=== PATIENT | male | born 1995 | race Caucasian/White ===

== ENCOUNTER 2024-02-25 12:19 | Emergency (ER) | payer MEDICAID, SELFPAY ==
[2024-02-25] VITALS (7 sets, daily range): BP systolic 134–149; BP diastolic 82–101; PULSE 57–78; RESP 17–24; TEMP 36.8; O2SAT 97–100
--- NOTE | ~2024-02-25 | XR_ITS ---
EXAMINATION: XR chest 2V DATE: 02/25/2024 12:41 INDICATION: Chest pain and shortness of breath TECHNIQUE: PA and lateral views of the chest were obtained. COMPARISON: None FINDINGS: The lungs are clear with no focal airspace opacities, pulmonary edema, pleural effusion or pneumothor ax. The cardiomediastinal silhouette is normal. Visualized bones and soft tissues are unremarkable. IMPRESSION: 1. Normal chest radiograph. Reviewed, dictated and finalized at location A. IMPRESSION: 1. Normal chest radiograph.
--- NOTE | 2024-02-25 12:24 | ECG_ITS ---
SEE SCANNED COPY FOR CONFIRMED REPORT MTDD
--- NOTE | 2024-02-25 12:40 | ED.CHESTPAIN ---
HPI - Chest Pain General Chief Complaint: Chest Pain Stated Complaint: chest pressure Time Seen by Provider: 02/25/24 12:27 History of Present Illness HPI narrative: 28-year-old male presents to the emergency room for evaluation of midsternal chest pain that has been present for 5 days. Patient states the pain is worse when he is walking around, it is relieved when he is at rest. Denies any radiating pain. Denies shortness of breath or difficulty breathing. Patient denies any use of recreational drugs. 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 Denies shortness of breath or difficulty breathing. Denies fevers. Denies recent URI symptoms. Denies palpitations or lower extremity edema. Related Data Allergies Allergy/AdvReac Type Severity Reaction Status Date / Time No Known Allergies Allergy Unverified 02/17/17 11:39 Review of Systems Review of Systems: ROS unremarkable except for stated in HPI Exam Narrative: GENERAL: Well-appearing, well-nourished, no physical limitations, and in no acute distress. HEAD: Normocephalic, atraumatic. EYES: Conjunctivae normal, PERRLA and EOMI. CHEST: Clear to auscultation. No respiratory distress. No wheezes rales or rhonchi. No tenderness. HEART: Regular rate and rhythm. No murmur heard. Normal peripheral pulses. ABDOMEN: Soft, nontender, nondistended, normal active bowel sounds. BACK: No CVA tenderness EXTREMITIES: Normal range of motion. No edema. No clubbing or cyanosis SKIN: Warm, dry, no rash. No noted wounds NEURO: No focal deficits. Alert and oriented x3. MAEW. CN's II-XI intact bilaterally, normal gait PSYCH: Cooperative. Normal mood and affect. Course Vital Signs Vital signs: Vital Signs Pulse Rate 73 02/25/24 12:25 Respiratory Rate 17 02/25/24 12:25 Blood Pressure 134/91 H 02/25/24 12:25 Pulse Oximetry 100 02/25/24 12:25 Pulse Rate 66 02/25/24 13:01 Respiratory Rate 20 02/25/24 13:01 Blood Pressure 145/85 H 02/25/24 13:01 Pulse Oximetry 100 02/25/24 13:01 Oxygen Delivery Room Air 02/25/24 12:26 MDM - Chest Pain Lab Data 02/25/24 12:36 02/25/24 12:36 Labs: Lab Results 02/25/24 Range/Units 12:36 WBC 12.2 H (4.5-10.0) K/mm3 RBC 5.27 (4.6-6.20) M/mm3 Hgb 15.2 (14.0-18.0) g/dL Hct 45.6 (42.0-52.0) % MCV 86.5 (80-100) fl MCH 28.8 (26-34) pg MCHC 33.3 (32-36) g/dl RDW 12.6 (11.5-14.5) % Plt Count 323 (150-375) k/mm3 MPV 10.4 (7.4-10.4) fl Immature Gran % (Auto) 0.3 (0-0.5) % Neut % (Auto) 60.4 (45.5-73.1) % Lymph % (Auto) 30.1 (18.3-44.2) % Atlantic % (Auto) 7.4 (2.6-8.5) % Eos % (Auto) 1.1 (0-4.4) % Baso % (Auto) 0.7 (0.2-1.2) % Lymph # (Auto) 3.68 H (0.9-3.2) K/mm3 Atlantic # (Auto) 0.9 H (0.1-0.6) K/mm3 Eos # (Auto) 0.1 (0-0.3) K/mm3 Baso # (Auto) 0.1 (0.0-0.1) K/mm3 Abs Immat Gran (auto) 0.04 H (0.00-0.031) K/mm3 Absolute Neuts (auto) 7.4 H (1.3-6.7) K/mm3 Absolute Nucleated RBC 0.000 (0.0-0.012) K/mm3 Nucleated RBC % 0.0 (0.0-0.2) % PT 13.6 (11.1-14.7) Seconds INR 1.0 APTT 27.4 (22.3-36.8) Seconds Sodium 137 (137-145) mmol/L Potassium 3.8 (3.4-5.0) mmol/L Chloride 100 (98-107) mmol/L Carbon Dioxide 24 (22-30) mmol/L Anion Gap 13 H (4-12) mmol/L BUN 12 (9-20) mg/dL Creatinine 0.80 (0.7-1.3) mg/dL Estim Creat Clear Calc 126 ml/min Estimated GFR > 60 (59 - ) Glucose 104 (65-110) mg/dL Calcium 9.6 (8.4-10.2) mg/dL Total Bilirubin 1.2 (0.2-1.3) mg/dL AST 24 (17-59) U/L ALT 20 (6-50) U/L Alkaline Phosphatase 67 (38-126) U/L Troponin I < 0.012 (0.000-0.034) ng/mL Total Protein 9.0 H (6.3-8.2) g/dL Albumin 5.3 H (3.5-5.1) g/dL Lipase 59 (23-300) U/L Discharge Plan Discharge Clinical Impression: Atypical chest pain Patient Disposition: Home, Self-Care Condition: Stable Instructions: Antibiotic Form, Chest Pain (E
[2024-02-25 12:58] LABS: Basophils Absolute Auto 0.1 K/mm3 (0.0-0.1); Basophils Percent Auto 0.7 % (0.2-1.2); Eosinophils Absolute Auto 0.1 K/mm3 (0-0.3); Eosinophils Percent Auto 1.1 % (0-4.4); Hematocrit 45.6 % (42.0-52.0); Hemoglobin 15.2 g/dL (14.0-18.0); Immature Granulocyte Absolute 0.04 K/mm3 (0.00-0.031); Immature Granulocyte Percent A 0.3 % (0-0.5); Lymphocytes Absolute Auto 3.68 K/mm3 (0.9-3.2); Lymphocytes Percent Auto 30.1 % (18.3-44.2); Mean Corpuscular HGB Conc 33.3 g/dl (32-36); Mean Corpuscular Hemoglobin 28.8 pg (26-34); Mean Corpuscular Volume 86.5 fl (80-100); Mean Platelet Volume 10.4 fl (7.4-10.4); Monocytes Absolute Auto 0.9 K/mm3 (0.1-0.6); Monocytes Percent Auto 7.4 % (2.6-8.5); Neutrophils Absolute Auto 7.4 K/mm3 (1.3-6.7); Neutrophils Percent Auto 60.4 % (45.5-73.1); Platelet Count Result 323 k/mm3 (150-375); Red Blood Count 5.27 M/mm3 (4.6-6.20); Red Cell Distribution Width 12.6 % (11.5-14.5); White Blood Count 12.2 K/mm3 (4.5-10.0)
[2024-02-25] MEDS: KETOROLAC 30 MG/ML VIAL (*BKC) IV PUSH (13:02)
[2024-02-25 13:11] LABS: Alanine Aminotransferase 20 U/L (6-50); Albumin Level 5.3 g/dL (3.5-5.1); Alkaline Phosphatase 67 U/L (38-126); Anion Gap 13 mmol/L (4-12); Aspartate Amino Transferase 24 U/L (17-59); Bilirubin,Total 1.2 mg/dL (0.2-1.3); Blood Urea Nitrogen 12 mg/dL (9-20); Calcium 9.6 mg/dL (8.4-10.2); Carbon Dioxide 24 mmol/L (22-30); Chloride 100 mmol/L (98-107); Estimated CRCL calculation 126 ml/min; Estimated Glomerular Filt Rate > 60; Glucose 104 mg/dL (65-110); Lipase 59 U/L (23-300); Potassium 3.8 mmol/L (3.4-5.0); Sodium 137 mmol/L (137-145)
[2024-02-25 13:14] LABS: Prothrombin Time 13.6 Seconds (11.1-14.7)
[2024-02-25 13:16] LABS: Partial Thromboplastin Time 27.4 Seconds (22.3-36.8)
[2024-02-25 13:23] LABS: Troponin I < 0.012 ng/mL (0.000-0.034)
== END 2024-02-25 14:00 | disposition home or self-care (01) ==
PROVIDERS: Preventive Medicine Aerospace Medicine; Emergency Provider Nurse Practitioner Family
DX: R07.89 Other chest pain (principal)
CPT/HCPCS: 36415; 71046; 80053; 83690; 84484; 85025; 85610; 85730; 93005; 96374; 99284; J1885

== ENCOUNTER 2025-05-02 17:35 | Emergency (ER) | payer OTHER, SELFPAY ==
--- OUTSIDE RECORDS SUMMARY | 2025-05-02 17:37 | XMS_ITS | Clinical Summary ---
Author Organization [facility] Address [address] [place] [address] Care Team Providers Care Coil Placer Name Role Phone Chago Faust MD Primary Care Provider [phone] Allergies Active Allergy Reactions Criticality Noted Date Comments Sulfa Unknown 03/08/2025 Medications No known medications Active Problems Problem Noted Date Diagnosed Date Migraine without aura 03/08/2025 Overview (03/08/2025): Provided family with alot of reassurrance given normal PE, including neuro exam. Features indicative of probable migraine headaches, uncomplicated. Provided family with handouts from [employer], as well as a questionnaire for migraines. Jeanine encouraged to get plenty of rest/sleep, exercise and fluids daily as well as to keep a log of his headaches and any possible precipitating events. At first sign of headache, he is to notify mother or teacher and take motrin and a caffeinated beverage. Will follow up in 2 months or sooner if not better. Assessment & Plan (03/08/2025 4:42 PM CDT): Stable, well controlled; patient reports 1 episode every 4 months; good relief with mfvo-tgm-hynkhnb treatments with Tylenol and ibuprofen Continue ujie-ewv-tzigwvj treatments p.r.n. for symptoms Varicose veins of left lower extremity 7 Resolved Problems Problem Noted Date Diagnosed Date Resolved Date Depression 04/10/2016 03/08/2025 Encounters Date Type Department Care Team Description 03/27/2025 1:41 PM CDT - 03/27/2025 11:59 PM CDT Hospital Encounter [facility] [address] [place] [address] Lymphadenopathy of head and neck Discharge Disposition: Discharge to home or self care 03/09/2025 Results Follow-Up [facility] [address] [phone] Chago Faust MD CBC with auto differential, Comprehensive metabolic panel, Hepatitis B Surface Antigen Blood, Additional followed-up results: 7 03/08/2025 3:00 PM CDT Lab [facility] [address] [place] [phone] Encounter to establish care with new doctor; Need for hepatitis B screening test; Encounter for hepatitis C screening test for low risk patient 03/08/2025 2:30 PM CDT Office Visit [facility] [address] [phone] Chago Faust MD Lymphadenopathy of head and neck (Primary Dx); Need for hepatitis B screening test; Encounter for hepatitis C screening test for low risk patient; Encounter to establish care with new doctor; Migraine without aura and without status migrainosus, not intractable from Last 3 Months Immunizations Immunization Administration Dates Next Due Adenovirus 12/03/2017 DTaP 07/20/2001, 9,03/29/1998,11/21,1997 Hep A, Ped Unspecified 06/12/2010,05/24/2007 Hep B, Adolescent or Pediatric 03/29/1998,1996,1997 IPV 12/03/2017, 1,1997,09/19 Influenza, Quadrivalent, Stephany l Culture-based MDCK, Antibiotic Free, Intramuscular 12/03/2017 MMR 12/08/2017,07/20/2001,05/30/1999 Meningococcal MCV4P (Menactra) 12/03/2017,2013 OPV 05/30/1999 Tdap 12/03/2017,06/12/2010 Varicella 06/23/2014,09/17/1998 Surgical History Surgery Date Site/Laterality Comments APPENDECTOMY 10/12/2010 - 10/11/2011 N/A Family History Medical History Relation Name Comments Diabetes Mother's Brother Relation Name Status Comments Mother's Brother Social History Tobacco Use Types Packs/Day Years Used Date Smoking Tobacco: Never Smokeless Tobacco: Never Tobacco Cessation:Counseling Given: Not Answered AUDIT-C Answer Date Recorded Q1: How often do you have a drink containing alcohol? Never 03/08/2025 Q2: How many drinks containi ng alcohol do you have on a typical day when you are drinking? Patient does not drink Q3: How often do you have si x or more drinks on one occasion? Never 03/08/2025 PHQ-2 Answer Date Recorded PHQ-2 Total Score (If total score is 3 or more points, staff should administer the PHQ-9) 0 03/08/2025 Sex and Gender Information Value Date Recorded Sex Assigned at Not on file Legal Sex Male 7:09 AM [employer] Gender Identity Not on file Sexual Orientation Not on file Obstetrics History Last Filed Vital Signs Vital Sign Reading Time Taken Comments Blood Pressure 114/70 03/08/2025 2:15 PM CDT Pulse 54 03/08/2025 2:15 PM CDT Temperature 36.5 C (97.7 F) 03/08/2025 2:15 PM CDT Respiratory Rate 18 03/08/2025 2:15 PM CDT Oxygen Saturation 98% 03/08/2025 2:15 PM CDT Inhaled Oxygen Concentration - - Weight 112 kg (247 lb) 03/08/2025 2:15 PM CDT Height 180.3 cm (5' 11) 03/08/2025 2:15 PM CDT Body Mass Index 34.45 03/08/2025 2:15 PM CDT Plan of Treatment Health Maintenance Due Date Last Done Comments Regular Well Visit/Exam 18-64 2015 Covid-19 Vaccine ( season) 2024 01/29/2021, 01/07/2021 Influenza Vaccine (#1) 2025 12/03/2017 Depression Screening 03/08/2026 03/08/2025 DTaP/Tdap/Td Vaccine (8 - Td or Tdap) 12/03/2027 12/03/2017, 06/12/2010, 07/20/2001, Additional history exists Varicella Vaccines Completed 06/23/2014, 09/17/1998 Hepatitis B Screening Completed 03/08/2025 , 03/29/1998, 1997, Additional history exists Hepatitis C Screening Completed 03/08/2025 HPV Vaccines Aged Out No longer eligi ble based on patient's age to complete this topic Pneumococcal vaccine <65 Aged Out No longer eligible based on patient's age to complete this topic Procedures Procedure Name Priority Date/Time Associated Diagnosis Comments US SOFT TISSUE HEAD NECK Schedule Routine, Read Routine (OP Routine) 03/27/2025 2:04 PM CDT Lymphadenopathy of head and neck EGFR Routine 03/08/2025 3:08 PM CDT Encounter to establish care with new doctor DIFFERENTIAL AUTO Routine 03/08/2025 3:0 8 PM CDT Encounter to establish care with new doctor LIPID PANEL Routine 03/08/2025 3:08 PM CDT Encounter to establish care with new doctor COMPREHENSIVE METABOLIC PANEL Routine 03/08/2025 3:08 PM CDT Encounter to establish care with new doctor CBC WITH AUTO DIFFERENTIAL Routine 03/08/2025 3:08 PM CDT Encounter to establish care with new doctor HEPATITIS C ANTIBODY Routine 03/08/2025 3:08 PM CDT Encounter for hepatitis C screening test for low risk patient HEPATITIS B SURFACE ANTIBODY (IMMUNE STATUS) Routine 03/08/2025 3:08 PM CDT Need for hepatitis B screening test HEPATITIS B CORE ANTIBODY, TOTAL Routine 03/08/2025 3:08 PM CDT Need for hepatitis B screening test HEPATITIS B SURFACE ANTIGEN Routine 03/08/2025 3:08 PM CDT Need for hepatitis B screening test from Last 3 Months Results * US Soft Tissue Neck (03/27/2025 2:04 PM CDT) Anatomical Region Laterality Modality Head and Neck N/A Ultrasound 04/12/2025 2:23 AM CDT Narrative 04/12/2025 2:28 AM CDT EXAM DESCRIPTION: US SOFT TISSUE HEAD NECK REASON FOR STUDY: enlarged lymph nodes; bilaterally Patient complains of swelling to inferior and lateral neck bilaterally for approximately 2 years. TECHNIQUE: A Dynamic assessment of the bilateral neck was performed by the financial representative with selected grayscale and color Doppler images acquired and recorded in PACS. COMPARISON: None. FINDINGS: SKIN AND SUBCUTANEOUS TISSUES: No masses. No fluid collections. No edema. No foreign bodies. DEEP SOFT TISSUES/MUSCLES: No masses. No fluid collections. No edema. OTHER: No other significant finding. IMPRESSION: No soft tissue mass, fluid collection, lymphadenopathy or foreign body. THIS IS AN ELECTRONICALLY VERIFIED FINAL REPORT 04/12/2025 2:28 AM - Electronically signed by Mariana Wilkinson M.D. SN: SN Report ID: [id number] Reading Location: [id number] Procedure Note Mariana Wilkinson MD - 04/12/2025 EXAM DESCRIPTION: US SOFT TISSUE HEAD NECK REASON FOR STUDY: enlarged lymph nodes; bilaterally Patient complains of swelling to inferior and lateral neck bilaterally for approximately 2 years. TECHNIQUE: A Dynamic assessment of the bilateral neck was performed bythe financial representative with selected grayscale and color Doppler images acquired and recorded in PACS. COMPARISON: None. FINDINGS: SKIN AND SUBCUTANEOUS TISSUES: No masses. No fluid collections. Noedema. No foreign bodies. DEEP SOFT TISSUES/MUSCLES: No masses. No fluid collections. No edema. OTHER: No other significant finding. IMPRESSION: No soft tissue mass, fluid collection, lymphadenopathy or foreign body. THIS IS AN ELECTRONICALLY VERIFIED FINAL REPORT 04/12/2025 2:28 AM - Electronically signed by Mariana Wilkinson M.D. SN: SN Report ID: [id number] Reading Location: [id number] us Chago Faust MD [facility] US PROCEDURES Final R esult * eGFR (03/08/2025 3:08 PM CDT) eGFR >90 >=60 mL/min/1. 73 m2 Comment: Interpretive Data Reference Interval Normal >/= 90 mL/min/1.73m2 Mildly decreased* 60 - 89 mL/min/1.73m2 Mildly to moderately decreased 45 - 59 mL/min/1.73m2 Moderately to severely decreased 30 - 44 mL/min/1.73m2 Severely decreased 15 - 29 mL/min/1.73m2 Kidney Failure < 15 mL/min/1.73m2 *Relative to young adult level Estimated glomerular filtration rate is determined by the 2020 CKD-EPI equation recommended by the National Kidney Foundation (A Unifying Approach to GFR Estimation: Recommendations of the NKF-ASK Task Force on Reassessing the Inclusion of Race in Diagnosing Kidney Disease, JASN 2020). The CKD-EPI equation should not be used for patients with unstable renal function and has not been validated in children and those over 70. Current interpretive data was last reviewed 2021. Testing performed by: [address] [id number] Blood 03/08/2025 3:08 PM CDT 03/08/2025 7:23 PM CDT us Chago Faust MD LAB BLOOD ORDERABLES Mora kingsley Result [facility]ST[facility]I [facility] ([place]) 1 [facility] Department [place] [address] * Differential, auto (03/08/2025 3:08 PM CDT) Pathologist [facility] Neutrophil abs 4.34 1.50 - 6.50 K/cumm Comment:Testing performed by : [facility], [address] [place] [address]., [id number] Imm gran abs 0.05 0.00 - 0.10 K/cumm DESTINI [facility] ([place]IGUEL) Comment:Testing performed by : [facility], [address] [place] [address]., [id number] Lymphocyte abs 2.35 0.80 - 3.30 K/cumm [facility] ([place]) Comment:Testing performed by : [facility], [address] [place] [address]., [id number] Monocyte abs 0.69 0.20 - 0.80 K/cumm [facility] ([place]) Comment:Testing performed by : [facility], [address] [place] [address]., [address] Eosinophil abs 0.21 0.00 - 0.50 K/cumm [facility] ([place]) Comment:Testing performed by : [facility], [address] [place] [address]., [address] Basophil abs 0.09 0.00 - 0.10 K/cumm [facility] ([place]) Comment:Testing performed by : [facility], [address] [place] [address]., [address] Neutrophil pct 56.2 % [facility] ([place]) Comment: Interpretive Data Percent cell count reference ranges are not reported, since discordance with absolute values may lead to misinterpretation of CBC data. Current Interpretive Data was last revised on 2018. Testing performed by: [facility], [address] [place] [address]., [id number] Imm gran pct 0.6 % [facility] ([place]) Comment: Interpretive Data Percent cell count reference ranges are not reported, since discordance with absolute values may lead to misinterpretation of CBC data. Current Interpretive Data was last revised on 2018. Testing performed by: [facility], [address] [place] [address]., [address] Lymphocyte pct 30.4 % [facility] ([place]) Comment: Interpretive Data Percent cell count reference ranges are not reported, since discordance with absolute values may lead to misinterpretation of CBC data. Current Interpretive Data was last revised on 2018. Testing performed by: [facility], [address] [place] [address]., [address] Monocyte pct 8.9 % [facility] ([place]) Comment: Interpretive Data Percent cell count reference ranges are not reported, since discordance with absolute values may lead to misinterpretation of CBC data. Current Interpretive Data was last revised on 2018. Testing performed by: [facility], [address] [place] [address]., [address] Eosinophil pct 2.7 % [facility] ([place]) Comment: Interpretive Data Percent cell count reference ranges are not reported, since discordance with absolute values may lead to misinterpretation of CBC data. Current Interpretive Data was last revised on 2018. Testing performed by: [address] [address] Basophil pct 1.2 % [facility]STINI [facility]IV[facility] ([place]EL) Comment: Interpretive Data Percent cell count reference ranges are not reported, since discordance with absolute values may lead to misinterpretation of CBC data. Current Interpretive Data was last revised on 2018. Testing performed by: [address], [address] Blood 03/08/2025 3:08 PM CDT 03/08/2025 7:13 PM CDT us Chago Faust MD LAB BLOOD ORDERABLES Mora kingsley Result DESTINI VIVAR ([place]) 1 [facility] Department [place] [address] * CBC with auto differential (03/08/2025 3:08 PM CDT) WBC 7.73 3.80 - 9.90 K/cumm Comment:Testing performed by : [address] [address] Hgb 13.6 13.0 - 17.5 g/dL DESTIIN VIVAR ([place]EL) Comment:Testing performed by : [address], [address] Hct 41.7 38.9 - 50.3 % [facility] ([place]) Comment:Testing performed by : [address] [address] Plt 292 150 - 400 K/cumm [facility] ([place]) Comment:Testing performed by : [address], [address] MPV 10.5 9.1 - 12.3 fL [facility] ([place]) Comment:Testing performed by : [address], [address] RBC 4.75 4.30 - 5.80 M/cumm [facility] ([place]) Comment:Testing performed by : [facility], [address] [place] [address]., [address] MCV 87.8 81.3 - 96.4 fL DESTINI VIVAR ([place]EL) Comment:Testing performed by : [facility], [address] [place] [address]., [address] MCH 28.6 27.1 - 33.3 pg DESTINI VIVAR ([place]) Comment:Testing performed by : [facility], [address] [place] [address], [address] MCHC 32.6 32.3 - 35.7 g/dL DESTINI VIVAR ([place]EL) Comment:Testing performed by : [facility], [address] [place] [address], [address] RDW CV 12.6 11.1 - 14.9 % DESTINI VIV[facility] ([place]EL) Comment:Testing performed by : [facility], [address] [place] [address], [address] RDW SD 40.2 35.7 - 48.1 fL DESTINI VIVAR ([place]EL) Comment:Testing performed by : [facility], [address] [place] [address], [id number] NRBC abs 0.00 0.00 - 0.01 K/cumm DESTINI VIVAR ([place]) Comment:Testing performed by : [address], [address] Blood 03/08/2025 3:08 PM CDT 03/08/2025 7:13 PM CDT Chago Faust MD LAB BLOOD ORDERABLES Mora kingsley Result DESTINI VIVAR ([place]) 1 [facility] Department [place] [address] * Hepatitis C antibody Blood (03/08/2025 3:08 PM CDT) Pathologist [facility] Hep C Ab Nonreactive Nonreactive Comment: Interpretive Data Nonreactive: Antibodies to HCV not detected. Does NOT exclude the possibility of recent exposure to HCV. Equivocal: Equivocal for HCV antibodies. Supplemental molecular testing will be automatically performed to determine infection status in accordance with current CDC screening recommendations. Reactive: Positive for HCV antibodies. This may represent current or past HCV infection. Supplemental molecular testing will be automatically performed to determine current infection status in accordance with current CDC screening recommendations. Interpretive data was last revised on 2019. Testing performed by: [facility], [address] [place] [address]., [id number] Blood 03/08/2025 3:08 PM CDT 03/08/2025 7:13 PM CDT Chago Faust MD LAB MICROBIOLOGY - GENERA L ORDERABLES Final Result Performing Organization Address City/[facility]/ZIP Co de Phone Number [facility] ([place]) 1 [facility] [place] [address] * Hepatitis B core antibody, total Blood (03/08/2025 3:08 PM CDT) Hep B core IgG/IgM Nonreactive Nonreactive Comment:Testing performed by : [facility], [address] [place] [address]., [id number] Blood 03/08/2025 3:08 PM CDT 03/09/2025 9:43 AM CDT Chago Faust MD LAB MICROBIOLOGY - [place] L ORDERABLES Final Result DESTINI VIVAR ([place]) 1 [facility] [place] [address] * Hepatitis B surface antibody (immune status) Blood (03/08/2025 3:08 PM CDT) HBsAb (immune status) Nonreactive Comment: Interpretive Data Nonreactive: This result is consistent with a lack of immunity to Hepatitis B Virus when used in the setting of routine screening. Equivocal: The immune status of the individual should be further assessed, if appropriate, after consideration of clinical status, risk factors, and additional diagnostic information. Reactive: This result is consistent with immunity to Hepatitis B Virus when used in the setting of routine screening. Current interpretive data was last revised on 19. Testing performed by: [facility], [address] [place] [address]., [id number] Blood 03/08/2025 3:08 PM CDT 03/08/2025 7:13 PM CDT Chago Faust MD LAB MICROBIOLOGY - GENERA L ORDERABLES Final Result Performing Organization Address [facility] Co de Phone Number [facility] ([place]) [address] [place] [address] * Hepatitis B Surface Antigen Blood (03/08/2025 3:08 PM CDT) HepBsAg Nonreactive Nonreactive Comment:Testing performed by : [facility], [address] [place] [address], [address] Blood 03/08/2025 3:08 PM CDT 03/08/2025 7:13 PM CDT Chago Faust MD LAB MICROBIOLOGY - GENERA L ORDERABLES Final Result Performing Organization Address [facility] de Phone Number [facility] ([place]) 1 [facility] [place] [address] * (ABNORMAL) Lipid panel (03/08/2025 3:08 PM CDT) Cholesterol 155 30 - 199 mg/dL Comment: Interpretive Data Ages < or = 19 years Acceptable: <170 mg/dL Borderline high: 170-199 mg/dL High: >or= 200 mg/dL Ages > or = 20 years Desirable: <200 mg/dL Borderline high: 200-239 mg/dL High: >or= 240 mg/dL Literature References: 1. Expert Panel on Integrated Guidelines for Cardiovascular Health and Risk Reduction in Children and Adolescents. Pediatrics 2011;128:S213 2. NCEP Expert Panel. Circulation 2004;110:227 Current Interpretive Data was last revised on 2018. Testing performed by: [facility], [address] [place] [address], [id number] Triglycerides 174(H) <=149 mg/dL [facility] ([place]) Comment: Interpretive Data Ages < or = 9 years Acceptable: <75 mg/dL Borderline high: 75-99 mg/dL High: >or= 100 mg/dL Ages 10 to 20 years Acceptable: <90 mg/dL Borderline high: 90-129 mg/dL High: >or= 130 mg/dL Ages > or = 20 years Desirable: <150 mg/dL Borderline high: 150-199 mg/dL High: 200-499 mg/dL Very high: >or= 499 mg/dL Literature References: 1. Expert Panel on Integrated Guidelines for Cardiovascular Health and Risk Reduction in Children and Adolescents. Pediatrics 2011;128:S213 2. NCEP Expert Panel. Circulation 2004;110:227 Current Interpretive Data was last revised on 2018. Testing performed by: [facility], [address] [place] [address]., [address] HDL 43 >=40 mg/dL DESTINI VIVAR ([place]) Comment: Interpretive Data Ages < or = 19 years Acceptable: >45 mg/dL Borderline low: 40-45 mg/dL Low: <40 mg/dL Ages > or = 20 years Desirable: >or= 60 mg/dL Low: <40 mg/dL Literature References: 1. Expert Panel on Integrated Guidelines for Cardiovascular Health and Risk Reduction in Children and Adolescents. Pediatrics 2011;128:S213 2. NCEP Expert Panel. Circulation 2004;110:227 Current Interpretive Data was last revised on 2018. Testing performed by: [facility], [address] [place] [address]., [address] LDL, calculated 82 <=129 mg/dL DESTINI VIVAR ([place]) Comment: Interpretive Data Ages < or = 19 years Acceptable: <110 mg/dL Borderline high: 110-129 mg/dL High: >or= 130 mg/dL Ages > or = 20 years Optimal: <100 mg/dL Near optimal: 100-129 mg/dL Borderline high: 130-159 mg/dL High: >160 mg/dL Calculated using the Eddie LDL-C estimating equation. This equation was implemented on 2024. Prior to this date LDL-C was estimated using the Friedewald equation. Literature References: 1. Expert Panel on Integrated Guidelines for Cardiovascular Health and Risk Reduction in Children and Adolescents. Pediatrics 2011;128:S213 2. NCEP Expert Panel. Circulation 2004;110:227 3. Eddie Lizama et al. DEA Cardiol. 2020 February 09;5(5):540-546. doi: 10.1001/jamacardio.2020.0013 Current Interpretive Data was last revised on 2024. Testing performed by: [address] [address] Non-HDL Cholesterol 112 mg/dL DESTINI VIVAR ([place]EL) Comment: Interpretive Data Ages < or = 19 years Acceptable: <120 mg/dL Borderline high: 120-144 mg/dL High: >145 mg/dL Ages > or = 20 years When triglycerides are >200 mg/dL, Non-HDL cholesterol is a secondary target of therapy with treatment goals that are 30 mg/dL greater than the LDL cholesterol target. Literature References: 1. Expert Panel on Integrated Guidelines for Cardiovascular Health and Risk Reduction in Children and Adolescents. Pediatrics 2011;128:S213 2. NCEP Expert Panel. Circulation 2004;110:227 Current Interpretive Data was last revised on 2018. Testing performed by: [address] [address] Chol/HDL ratio 4 DARI VIVAR ([place]EL) Comment:Testing performed by : [address] [address] Blood 03/08/2025 3:08 PM CDT 03/08/2025 7:13 PM CDT us Chago Faust MD LAB BLOOD ORDERABLES Mora kingsley Result DESTINI VIVAR ([place]) 1 [facility] Department [place] [address] * Comprehensive metabolic panel (03/08/2025 3:08 PM CDT) Sodium 141 135 - 145 mmol/L Comment:Testing performed by : [address] [address] Potassium, pl 4.3 3.3 - 4.9 mmol/L DESTINI VIVAR ([place]EL) Comment:Testing performed by : [address] [address] Chloride 105 97 - 110 mmol/L DESTINI VIVAR ([place]EL) Comment:Testing performed by : [address], [place]., [address] CO2 28 22 - 32 mmol/L [facility] ([place]) Comment:Testing performed by : [address] [address] Anion gap 8 2 - 15 mmol/L [facility] ([place]) Comment:Testing performed by : [address] [address] BUN 9 6 - 25 mg/dL [facility] ([place]) Comment:Testing performed by : [facility], [address] [place] [address], [address] Creatinine 0.96 0.80 - 1.30 mg/dL [facility] ([place]) Comment:Testing performed by : [address], [address] Glucose 88 70 - 199 mg/dL [facility] ([place]) Comment: Interpretive Data Fasting glucose >/= 126 mg/dl is diagnostic for diabetes. Fasting is defined as no caloric intake for at least 8 hours. Fasting glucose between 100 mg/dl to 125 mg/dl is diagnostic of prediabetes. In a patient with classic symptoms of hyperglycemia or hyperglycemic crisis, a random glucose >/= 200 mg/dl is diagnostic for diabetes. In the absence of unequivocal hyperglycemia, results should be confirmed by repeat testing. The classification and Diagnosis of Diabetes Diabetes Care 202; 46: S19-S40. Current interpretive data was last revised 2022. Testing performed by: [facility], [address] [place] [address]., [address] Calcium 9.4 8.5 - 10.3 mg/dL [facility] ([place]) Comment:Testing performed by : [address] [address] Bilirubin, total 0.4 0.1 - 1.2 mg/dL [facility] ([place]) Comment:Testing performed by : [address] [address] Protein, pl 7.2 6.5 - 8.5 g/dL [facility] ([place]) Comment:Testing performed by : [address], [address] Albumin 4.4 3.5 - 5.0 g/dL [facility] ([place]) Comment:Testing performed by : [facility], [address] [place] [address]., [address] Alk phos 83 40 - 130 Units/L [facility] ([place]) Comment:Testing performed by : [facility] [facility], [address] [place] [address], [id number] ALT 19 7 - 55 Units/L [facility] (MIGUEL) Comment:Testing performed by : [facility], [address] [place] [address], [id number] AST 27 10 - 50 Units/L [facility] (MIGUEL) Comment:Testing performed by : [facility], [address] [place] [address], [id number] Blood 03/08/2025 3:08 PM CDT 03/08/2025 7:13 PM CDT us Chago Faust MD LAB BLOOD ORDERABLES Mora l Result [facility] (MIGUEL) 1 [facility] Department [place] [address] from Last 3 Months Insurance [facility] Care Teams Coil Placer Relationship Specialty Start Date End Date Chago Faust MD [address] [place] [address] PCP - General Family Medicine 03/08/25
--- OUTSIDE RECORDS SUMMARY | 2025-05-02 17:37 | XMS_ITS | Referral Summary ---
Author Organization [facility] Address [address] [place] [address] Care Team Providers Care Subway Repair Supervisor Name Role Phone Chago Faust MD Primary Care Provider [phone] Encounters Date Type Department Care Team Description 03/27/2025 1:41 PM CDT - 03/27/2025 11:59 PM CDT Hospital Encounter [facility] [address] [place] [address] Lymphadenopathy of head and neck Discharge Disposition: Discharge to home or self care 03/09/2025 Results [facility] [address] [phone] Chago Faust MD CBC with auto differential, Comprehensive metabolic panel, Hepatitis B Surface Antigen Blood, Additional followed-up results: 7 03/08/2025 3:00 PM CDT Lab [facility] [address] [place] [phone] Encounter to establish care with new doctor; Need for hepatitis B screening test; Encounter for hepatitis C screening test for low risk patient 03/08/2025 2:30 PM CDT Office Visit [facility] [address] [phone] Chago Faust MD Lymphadenopathy of head and neck (Primary Dx); Need for hepatitis B screening test; Encounter for hepatitis C screening test for low risk patient; Encounter to establish care with new doctor; Migraine without aura and without status migrainosus, not intractable from Last 3 Months Allergies Active Allergy Reactions Criticality Noted Date Comments Sulfa Unknown 03/08/2025 Medications No known medications Active Problems Problem Noted Date Diagnosed Date Migraine without aura 03/08/2025 Overview (03/08/2025): Provided family with alot of reassurrance given normal PE, including neuro exam. Features indicative of probable migraine headaches, uncomplicated. Provided family with handouts from [employer], as well as a questionnaire for migraines. Tyce encouraged to get plenty of rest/sleep, exercise [...] episode every 4 months; good relief with tyzp-oyh-tfspfpn treatments with Tylenol and ibuprofen Continue crer-wnr-xyerhro treatments p.r.n. for symptoms Varicose veins of left lower extremity 7 Resolved Problems Problem Noted Date Diagnosed Date Resolved Date Depression 04/10/2016 03/08/2025 Immunizations Immunization Administration Dates Next Due Adenovirus 12/03/2017 DTaP 07/20/2001, 9,03/29/1998,11/21,1997 Hep A, Ped Unspecified 06/12/2010,05/24/2007 Hep B, Adolescent or Pediatric 03/29/1998,1996,1997 IPV 12/03/2017, 1,1997,09/19 Influenza, Quadrivalent, Stephany l Culture-based MDCK, Antibiotic Free, Intramuscular 12/03/2017 MMR 12/08/2017,07/20/2001,05/30/1999 Meningococcal MCV4P (Menactra) 12/03/2017,2013 OPV 05/30/1999 Tdap 12/03/2017,06/12/2010 Varicella 06/23/2014,09/17/1998 Social History Tobacco Use Types Packs/Day Years [...] on file 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 SN: SN Report ID: [id number] Reading Location: [id number] Procedure Note Mariana Wilkinson MD - 04/12/2025 EXAM DESCRIPTION: US SOFT TISSUE HEAD NECK REASON FOR STUDY: enlarged lymph nodes; bilaterally Patient complains of swelling to inferior and lateral neck bilaterally for approximately 2 years. TECHNIQUE: A Dynamic assessment of the bilateral neck was performed bythe media director with selected grayscale and color Doppler images [...] Mariana Wilkinson M.D. SN: SN Report ID: [id number] Reading Location: [place] [address] us Chago Faust MD IMG US PROCEDURES Final R esult * eGFR [...] of Race in Diagnosing Kidney Disease, JASN 202). The CKD-EPI equation should not be used for patients with unstable renal function and has not been validated in children and those over 70. Current interpretive data was last reviewed 2021. Testing performed by: [facility], [address] [place] [address], [place]., [address] Blood 03/08/2025 3:08 PM CDT 03/08/2025 7:23 PM CDT Chago Faust MD LAB BLOOD ORDERABLES Mora sancho Result [facility] (MIGUEL) 1 [facility] Department [place] [address] * Differential, auto (03/08/2025 3:08 PM CDT) Neutrophil abs 4.34 1.50 - 6.50 K/cumm Comment:Testing performed by : [facility], [address] [place] [address]., [address] Imm gran abs 0.05 0.00 - 0.10 K/cumm [facility] (MIGUEL) Comment:Testing performed by : [facility], [address] [place] [address], [address] Lymphocyte abs 2.35 0.80 - 3.30 K/cumm [facility] (MIGUEL) Comment:Testing performed by : [facility], [address] [place] [address], [address] Monocyte abs 0.69 0.20 - 0.80 K/cumm [facility] (MIGUEL) Comment:Testing performed by : [facility], [address] [place] [address]., [address] Eosinophil abs 0.21 0.00 - 0.50 K/cumm [facility] (MIGUEL) Comment:Testing performed by : [address] [address] Basophil abs 0.09 0.00 - 0.10 K/cumm [facility] (MIGUEL) Comment:Testing performed by : [address] [address] Neutrophil pct 56.2 % [facility] (MIGUEL) Comment: Interpretive Data Percent cell count reference ranges are not reported, since discordance with absolute values may lead to misinterpretation of CBC data. Current Interpretive Data was last revised on 2018. Testing performed by: [address], [address] Imm gran pct 0.6 % [facility] (MIGUEL) Comment: Interpretive Data Percent cell count reference ranges are not reported, since discordance with absolute values may lead to misinterpretation of CBC data. Current Interpretive Data was last revised on 2018. Testing performed by: [facility], [address] [place] [address]., [address] Lymphocyte pct 30.4 % [facility] ([place]IG[facility]EL) Comment: Interpretive Data Percent cell count reference ranges are not reported, since discordance with absolute values may lead to misinterpretation of CBC data. Current Interpretive Data was last revised on 2018. Testing performed by: [facility], [address] [place] [address]., [address] Monocyte pct 8.9 % [facility] (MIGUEL) Comment: Interpretive Data Percent cell count reference ranges are not reported, since discordance with absolute values may lead to misinterpretation of CBC data. Current Interpretive Data was last revised on 2018. Testing performed by: [facility], [address] [place] [address]., [address] Eosinophil pct 2.7 % [facility] (MIGUEL) Comment: Interpretive Data Percent cell count reference ranges are not reported, since discordance with absolute values may lead to misinterpretation of CBC data. Current Interpretive Data was last revised on 2018. Testing performed by: [address] [address] Basophil pct 1.2 % [facility] (MIGUEL) Comment: Interpretive Data Percent cell count reference ranges are not reported, since discordance with absolute values may lead to misinterpretation of CBC data. Current Interpretive Data was last revised on 2018. Testing performed by: [address] [address] Blood 03/08/2025 3:08 PM CDT 03/08/2025 7:13 PM CDT us Chago Faust MD LAB BLOOD ORDERABLES Mora kingsley Result [facility] (MIGUEL) 1 [facility] Department [place] [address] * CBC with auto differential (03/08/2025 3:08 PM CDT) [facility] WBC 7.73 3.80 - 9.90 K/cumm Comment:Testing performed by : [facility], [address] [place] [address], [address] Hgb 13.6 13.0 - 17.5 g/dL [facility] (MIGUEL) Comment:Testing performed by : [address], [address] Hct 41.7 38.9 - 50.3 % [facility] (MIGUEL) Comment:Testing performed by : [facility], [address] [place] [address], [address] Plt 292 150 - 400 K/cumm [facility] (MIGUEL) Comment:Testing performed by : [address], [address] MPV 10.5 9.1 - 12.3 fL [facility] ([facility]IGUEL) Comment:Testing performed by : [address], [address] RBC 4.75 4.30 - 5.80 M/cumm [facility] (MIGUEL) Comment:Testing performed by : [address], [address] MCV 87.8 81.3 - 96.4 fL [facility] (MIGUEL) Comment:Testing performed by : [address], [address] MCH 28.6 27.1 - 33.3 pg [facility] (MIGUEL) Comment:Testing performed by : [address], [address] MCHC 32.6 32.3 - 35.7 g/dL [facility] (MIGUEL) Comment:Testing performed by : [address], [address] RDW CV 12.6 11.1 - 14.9 % [facility] (MIGUEL) Comment:Testing performed by : [address], [address] RDW SD 40.2 35.7 - 48.1 fL [facility] (MIGUEL) Comment:Testing performed by : [address], [address] NRBC abs 0.00 0.00 - 0.01 K/cumm [facility] (MIGUEL) Comment:Testing performed by : [facility], [address] [place] [address]., [address] Blood 03/08/2025 3:08 PM CDT 03/08/2025 7:13 PM CDT Chago Faust MD LAB BLOOD ORDERABLES Mora l Result Performing Organization Address [facility] Co de Phone Number [facility] (TAMPA) 1 [facility] [place] [address] * Hepatitis C antibody Blood (03/08/2025 3:08 PM CDT) Hep C Ab Nonreactive Nonreactive Comment: Interpretive [...] last revised on 2019. Testing performed by: [facility], [address] [place] [address]., [address] Blood 03/08/2025 3:08 PM CDT 03/08/2025 7:13 PM CDT Chago Faust MD LAB MICROBIOLOGY - GENERA L ORDERABLES Final Result Performing Organization Address [facility] Co de Phone Number [facility]SIN[facility] (MIGUEL) 1 [place] [address] * Hepatitis B core antibody, total Blood (03/08/2025 3:08 PM CDT) Hep B core IgG/IgM Nonreactive Nonreactive Comment:Testing performed by : [facility], [address] [place] [address], [place]., [address] Blood 03/08/2025 3:08 PM CDT 03/09/2025 9:43 AM CDT Chago Faust MD LAB MICROBIOLOGY - GENERA L ORDERABLES Final Result [facility] (MIGUEL) 1 [facility] [place] [address] * Hepatitis B surface antibody (immune status) [...] last revised on 19. Testing performed by: [address] [address] Blood 03/08/2025 3:08 PM CDT 03/08/2025 7:13 PM CDT Chago Faust MD LAB MICROBIOLOGY - GENERA L ORDERABLES Final Result Performing Organization Address [facility] Co de Phone Number [facility] ([place]) 1 [facility] [place] [address] * Hepatitis B Surface Antigen Blood (03/08/2025 3:08 PM CDT) HepBsAg Nonreactive Nonreactive Comment:Testing performed by : [address] [address] Blood 03/08/2025 3:08 PM CDT 03/08/2025 7:13 PM CDT Chago Faust MD LAB MICROBIOLOGY - GENERA L ORDERABLES Final Result [facility] (MIGUEL) 1 [facility] [place] [address] * (ABNORMAL) Lipid panel (03/08/2025 3:08 PM CDT) [facility] Signature Cholesterol 155 30 - 199 mg/dL Comment: [...] last revised on 2018. Testing performed by: [facility], [address] [place] [address]., [address] Triglycerides 174(H) <=149 mg/dL [facility] (MIGUEL) Comment: Interpretive Data [...] last revised on 2018. Testing performed by: [facility], [address] [place] [address]., [address] HDL 43 >=40 mg/dL [facility] (MIGUEL) [...] last revised on 2018. Testing performed by: [facility], [address] [place] [address]., [address] LDL, calculated 82 <=129 mg/dL [facility] [...] Lizama et al. DEA Cardiol. 2020 February 09;5(5):540-548. doi: 10.1001/jamacardio.2020.0013 Current Interpretive Data was last revised on 2024. Testing performed by: [address] [address] Non-HDL Cholesterol 112 mg/dL [facility] (MIGUEL) [...] last revised on 2018. Testing performed by: [address] [address] Chol/HDL ratio 4 [facility] (MIGUEL) Comment:Testing performed by : [address] [address] Blood 03/08/2025 3:08 PM CDT 03/08/2025 7:13 PM CDT us Chago Faust MD LAB BLOOD ORDERABLES Mora kingsley Result [facility] (TAM[place]) 1 [facility] [place] [address] * Comprehensive metabolic panel (03/08/2025 3:08 PM CDT) Sodium 141 135 - 145 mmol/L Comment:Testing performed by : [facility], [address] [place] [address]., [address] Potassium, pl 4.3 3.3 - 4.9 mmol/L [facility] ([facility] Comment:Testing performed by : [facility], [address] [place] [address], [address] Chloride 105 97 - 110 mmol/L [facility] (MIGUEL) Comment:Testing performed by : [facility], [address] [place] [address], [address] CO2 28 22 - 32 mmol/L [facility] (MIGUEL) Comment:Testing performed by : [address] [address] Anion gap 8 2 - 15 mmol/L [facility] ([facility] Comment:Testing performed by : [address] [address] BUN 9 6 - 25 mg/dL [facility] (MIGUEL) Comment:Testing performed by : [address], [address] Creatinine 0.96 0.80 - 1.30 mg/dL [facility] (MIGUEL) Comment:Testing performed by : [address], [address] Glucose 88 70 - 199 mg/dL CERNER [...] was last revised 2022. Testing performed by: [facility], [address] [place] [address]., [address] Calcium 9.4 8.5 - 10.3 mg/dL [facility] (MIGUEL) Comment:Testing performed by : [address] [address] Bilirubin, total 0.4 0.1 - 1.2 mg/dL [facility] (MIGUEL) Comment:Testing performed by : [address], [address] Protein, pl 7.2 6.5 - 8.5 g/dL [facility] (MIGUEL) Comment:Testing performed by : [address], [address] Albumin 4.4 3.5 - 5.0 g/dL [facility] (MIGUEL) Comment:Testing performed by : [address], [address] Alk phos 83 40 - 130 Units/L [facility] (MIGUEL) Comment:Testing performed by : [address], [address] ALT 19 7 - 55 Units/L [facility] (MIGUEL) Comment:Testing performed by : [address], [address] AST 27 10 - 50 Units/L [facility] (MIGUEL) Comment:Testing performed by : [address], [address] Blood 03/08/2025 3:08 PM CDT 03/08/2025 7:13 PM CDT us Cahgo Faust MD LAB BLOOD ORDERABLES Mora kingsley Result [facility] 1 [facility] Department [place] [address] from Last 3 Months Insurance [facility] HMO/PPO Address: [address] [address] Care Teams Subway Repair Supervisor Relationship Specialty Start Date End Date Chago Faust MD [address] [place] [address] PCP - General Family Medicine 03/08/25
--- NOTE | 2025-05-02 17:40 | ED.SKABFB ---
HPI - Skin/Abscess/Foreign Bdy General Chief complaint: Skin/Abscess/Foreign Body Stated complaint: LT Leg infection Time Seen by Provider: 05/02/25 17:39 Source: patient Mode of arrival: ambulatory Limitations: no limitations History of Present Illness HPI narrative: Jeanine is a 29 year old male patient presenting to the clinic today with c/o possible left leg infection. He reports the area started out as a pimple on Thursday and his mother popped it. Now is become a more red, swollen, and painful. Does have a green pustule center. No fevers, chills, body aches. Related Data Allergies Allergy/AdvReac Type Severity Reaction Status Date / Time No Known Allergies Allergy Verified 05/02/25 17:51 Review of Systems Review of Systems: Pertinent positives per HPI. Patient denies any fever, chills, rash, headache, visual changes, dizziness, cough, runny nose, sore throat, shortness of breath, chest pain, palpitations, nausea, vomiting, diarrhea, constipation, abdominal pain, or any urinary issues. PMFSH Comments At the time of my signature, I reviewed and agree with the nursing past medical, surgical, social, and family history. There is no relevant family history pertinent to the patient complaint. Exam Narrative: General: Well-developed, well nourished, in no apparent distress Head: Normocephalic, atraumatic. Cardio: Regular rate and rhythm, s1 and s2 normal, no murmur appreciated. Resp: Clear to auscultation bilaterally, no rhonchi, rales, wheezing or rubs. Integumentary: [place], warm, and dry, infected skin sore/pustule- 2 cm x 1 cm indurated, mild swelling, mild erythema, tender to palpation without palpable abscess Course Course Emergency Course: Portions of this record may have been created with voice recognition software. Level of Care: Express Care Visit Vital Signs Vital signs: Vital Signs Temperature 36.9 C 05/02/25 17:41 Pulse Rate 73 05/02/25 17:41 Respiratory Rate 16 05/02/25 17:41 Blood Pressure 139/80 05/02/25 17:41 Pulse Oximetry 98 05/02/25 17:41 Oxygen Delivery Room Air 05/02/25 17:41 Temperature 36.9 C 05/02/25 17:41 Pulse Rate 73 05/02/25 17:41 Respiratory Rate 16 05/02/25 17:41 Blood Pressure 139/80 05/02/25 17:41 Pulse Oximetry 98 05/02/25 17:41 Oxygen Delivery Room Air 05/02/25 17:41 Vital signs reviewed MDM - Skin/Abscess/Foreign Bdy MDM Narrative Medical decision making narrative: At the time of visit patient is resting comfortably on the exam table. Patient appears to be nontoxic. Skin infection to the left lower lateral extremity that started out as a pimple on Thursday and his mother popped it. Now is become a more red, swollen, and painful. Does have a green pustule center. No fevers, chills, body aches. Redness is increasing. Plan: I suspect patient has bacterial skin infection. Prescription for Bactrim DS was sent to the pharmacy. Supportive measures were discussed with the patient and they voiced understanding discharge instructions and agrees to treatment plan. Return precautions reviewed Differential Diagnosis Differential diagnosis: Likely abscess of skin or subcutaneous tissue, viral exanthem, dermatophytosis, urticaria, herpes zoster, allergic reaction to drug, cellulitis, eczema, insect bites, impetigo and contact dermatitis Discharge Plan Discharge Clinical Impression: Bacterial skin infection Patient Disposition: Home Condition: Stable Instructions: Antibiotic Form, Wound Infection (ED) Additional Instructions: Keep wound clean and dry Take Bactrim as prescribed Watch for signs and symptoms of infection-fever, increase in redness, streaking, swelling, purulent discharge, or increase in pain. Follow up with your PCP in 3 days for wound check. Patient Language: [place] Citizen Prescriptions: New sulfamethoxazole-trimethoprim [Bactrim DS] 800-160 mg tablet 1 tablet PO Q12H 7 Days Qty: 14 0RF Follow-up/Referrals: PHYSICIAN,MANAGER BIOSTATISTICS [Primary Care Provider] - Time of Disposition: 17:59 Quality NIHSS Nursing Documentation ED NIHSS nursing documentation: reviewed/agree
[2025-05-02 17:41] VITALS: BP 139/80; PULSE 73; RESP 16; TEMP 36.9; O2SAT 98
--- OUTSIDE RECORDS SUMMARY | 2025-05-02 17:41 | XMS_ITS | Clinical Summary ---
Author Organization [facility] Address [facility] [place] [address] Care Team Providers Care Preschool Assistant Director Name Role Phone Conrado Diaz MD Primary Care Provider [phone] Allergies No known active allergies Medications acetaminophen 500 MG tablet Take 500 mg by mouth every 6 (six) hours as needed for Pain (for headache). Active hydrocortisone (ANUSOL-HC) 2.5 % Cream creamIndications :Hemorrhoids, unspecified hemorrhoid type Place rectally 2 (two) times daily. 1 Tube 9 Active Active Problems Problem Noted Date Diagnosed Date Varicose veins of left lower extremity 7 Depression 04/10/2016 Resolved Problems Problem Noted Date Diagnosed Date Resolved Date Wears glasses 06/10/2017 06/22/2020 Family History Medical History Relation Comments Diabetes Mother Relation Status Comments Father Alive Mother Alive Social History Tobacco Use Types Packs/Day Years Used Date Smoking Tobacco: Never Smokeless Tobacco: Never Alcohol Use Standard Drinks/Week Comments Yes 5 (1 standard drink = 0.6 oz pur e alcohol) Sex and Gender Information Value Date Recorded Sex Assigned at Not on file Legal Sex Male 8:25 PM CDT Gender Identity Not on file Sexual Orientation Not on file Last Filed Vital Signs Vital Sign Reading Time Taken Comments Blood Pressure 108/60 11/08/2018 1:38 PM BOILER INSPECTOR Pulse 62 11/08/2018 1:38 PM BOILER INSPECTOR Temperature 36.9 C (98.5 F) 11/08/2018 1:38 PM BOILER INSPECTOR Respiratory Rate 16 11/08/2018 1:38 PM BOILER INSPECTOR Oxygen Saturation 98% 11/08/2018 1:38 PM BOILER INSPECTOR Inhaled Oxygen Concentration - - Weight 92.2 kg (203 lb 3.2 oz) 11/08/2018 1:38 P M BOILER INSPECTOR Height 177.8 cm (5' 10) 11/08/2018 1:38 PM BOILER INSPECTOR Body Mass Index 29.16 11/08/2018 1:38 PM BOILER INSPECTOR Plan of Treatment Health Maintenance Due Date Last Done Comments Annual Physical 2000 Hepatitis C 2015 DTaP, Tdap and Td Vaccines ( 1 - Tdap) 2016 Hepatitis B Vaccines (1 of 3 - 19+ 3-dose series) 2016 COVID-19 Vaccine ( - 2023-2 5 season) 2024 HPV Vaccines (1 - 3-dose SCD M series) 2024 Meningococcal B Vaccine Aged Out No l onger eligible based on patient's age to complete this topic Meningococcal Vaccine Aged Out No jairon gordon eligible based on patient's age to complete this topic Pneumococcal Vaccine: Pediat rics (0 to 5 Years) and At-Risk Patients (6 to 49 Years) Aged Out No longer eligible b ased on patient's age to complete this topic RSV Immunizations Under 20 Months Aged Out No longer eligible based on patient's age to complete this topic Insurance Care Teams Preschool Assistant Director Relationship Specialty [place] [address] [place] [address] PCP - General FAMILY PRACTICE 11/02/18
== END 2025-05-02 18:02 | disposition home or self-care (01) ==
PROVIDERS: Emergency Provider Nurse Practitioner Family
DX: L08.9 Local infection of the skin and subcutaneous tissue, unspecified (principal); B96.89 Other specified bacterial agents as the cause of diseases classified elsewhere
CPT/HCPCS: 99213; G0463

== ENCOUNTER 2025-05-04 17:45 | Emergency (ER) | payer OTHER, SELFPAY ==
--- OUTSIDE RECORDS SUMMARY | 2025-05-04 17:47 | XMS_ITS | Clinical Summary ---
Author Organization [facility] Address [facility] [place] [address] Care Team Providers Care Brine Mixer Operator Name Role Phone Conrado Diaz MD Primary Care Provider [phone] Allergies No known active allergies Medications acetaminophen [...] Comments Blood Pressure 108/60 11/08/2018 1:38 PM SHELL MOLD BONDING MACHINE OPERATOR Pulse 62 11/08/2018 1:38 PM SHELL MOLD BONDING MACHINE OPERATOR Temperature 36.9 C (98.5 F) 11/08/2018 1:38 PM SHELL MOLD BONDING MACHINE OPERATOR Respiratory Rate 16 11/08/2018 1:38 PM SHELL MOLD BONDING MACHINE OPERATOR Oxygen Saturation 98% 11/08/2018 1:38 PM SHELL MOLD BONDING MACHINE OPERATOR Inhaled Oxygen Concentration - - Weight 92.2 kg (203 lb 3.2 oz) 11/08/2018 1:38 P M SHELL MOLD BONDING MACHINE OPERATOR Height 177.8 cm (5' 10) 11/08/2018 1:38 PM SHELL MOLD BONDING MACHINE OPERATOR Body Mass Index 29.16 11/08/2018 1:38 PM SHELL MOLD BONDING MACHINE OPERATOR Plan of Treatment Health Maintenance Due Date [...] to complete this topic Insurance Care Teams Brine Mixer Operator Relationship Specialty [place] [address] [place] [address] PCP - General FAMILY PRACTICE 11/02/18
--- OUTSIDE RECORDS SUMMARY | 2025-05-04 17:48 | XMS_ITS | Clinical Summary ---
Author Organization [facility] Address [address] [place] [address] Care Team Providers Care Machine Setter Name Role Phone Chago Faust MD Primary Care Provider [phone] Allergies Active Allergy Reactions Criticality Noted Date [...] episode every 4 months; good relief with euze-hzj-ebansyv treatments with Tylenol and ibuprofen Continue qsvb-hfe-evdadiv treatments p.r.n. for symptoms Varicose veins of left lower extremity 7 Resolved Problems Problem Noted Date Diagnosed Date Resolved Date Depression 04/10/2016 03/08/2025 Encounters Date Type Department Care Team Description 03/27/2025 1:41 PM CDT - 03/27/2025 11:59 PM CDT Hospital Encounter [facility] [address] [place] [address] Lymphadenopathy of head and neck Discharge Disposition: Discharge to home or self care 03/09/2025 Results [facility] [address] [phone] Chago Faust MD CBC with auto differential, Comprehensive metabolic panel, Hepatitis B Surface Antigen Blood, Additional followed-up results: 7 03/08/2025 3:00 PM CDT Lab [facility] [address] [place] [phone] Encounter to establish care with new doctor; Need for hepatitis B screening test; Encounter for hepatitis C screening test for low risk patient 03/08/2025 2:30 PM CDT Office Visit [facility] [address] [phone] Chago Faust MD Lymphadenopathy of head and [...] on file Legal Sex Male 7:09 AM [employer] Gender Identity Not on file Sexual Orientation [...] Covid-19 Vaccine ( season) 2024 01/29/2021, 01/07/2021 HPV Vaccines (1 - 3-dose SCDM series) 2024 Influenza Vaccine (#1) 2025 12/03/2017 Depression Screening 03/08/2026 03/08/2025 DTaP/Tdap/Td Vaccine (8 - Td or Tdap) 12/03/2027 12/03/2017, 06/12/2010, 07/20/2001, Additional history exists Varicella Vaccines Completed 06/23/2014, 09/17/1998 Hepatitis B Screening Completed 03/08/2025 , 03/29/1998, 1997, Additional history exists Hepatitis C Screening Completed 03/08/2025 Pneumococcal vaccine <65 Aged Out No longer [...] the bilateral neck was performed by the giving officer with selected grayscale and color Doppler images [...] Mariana Wilkinson M.D. SN: SN Report ID: [id number] Reading Location: [id number] Procedure Note Mariana Wilkinson MD - 04/12/2025 EXAM DESCRIPTION: US SOFT TISSUE HEAD NECK REASON FOR STUDY: enlarged lymph nodes; bilaterally Patient complains of swelling to inferior and lateral neck bilaterally for approximately 2 years. TECHNIQUE: A Dynamic assessment of the bilateral neck was performed bythe giving officer with selected grayscale and color Doppler images [...] Mariana Wilkinson M.D. SN: SN Report ID: [id number] Reading Location: [id number] us Chago Faust MD [facility] US PROCEDURES Final R esult * eGFR [...] 2021. Testing performed by: [facility], [address] [place] [address]., [id number] Blood 03/08/2025 3:08 PM CDT 03/08/2025 7:23 PM CDT us Chago Faust MD LAB BLOOD ORDERABLES Mora kingsley Result [facility] ([place]) 1 [facility] Department [place] [address] * Differential, auto (03/08/2025 3:08 PM CDT) Neutrophil abs 4.34 1.50 - 6.50 K/cumm Comment:Testing performed by : [facility], [address] [place] [address]., [id number] Imm gran abs 0.05 0.00 - 0.10 K/cumm [facility] ([place]) Comment:Testing performed by : [facility], [address] [place] [address]., [address] Lymphocyte abs 2.35 0.80 - 3.30 K/cumm [facility] ([place]) Comment:Testing performed by : [facility], [address] [place] [address]., [address] Monocyte abs 0.69 0.20 - 0.80 K/cumm [facility] ([place]) Comment:Testing performed by : [facility], [address] [place] [address]., [address] Eosinophil abs 0.21 0.00 - 0.50 K/cumm [facility] ([place]) Comment:Testing performed by : [facility], [address] [place] [address]., [address] Basophil abs 0.09 0.00 - 0.10 K/cumm [facility] ([place]) Comment:Testing performed by : [facility], [address] [place] [address]., [address] Neutrophil pct 56.2 % [facility] ([place]) Comment: Interpretive Data Percent cell count reference ranges are not reported, since discordance with absolute values may lead to misinterpretation of CBC data. Current Interpretive Data was last revised on 2018. Testing performed by: [facility], [address] [place] [address]., [address] Imm gran pct 0.6 % [facility] ([place]) Comment: Interpretive Data Percent cell count reference ranges are not reported, since discordance with absolute values may lead to misinterpretation of CBC data. Current Interpretive Data was last revised on 2018. Testing performed by: [facility], [address] [place] [address]., [address] Lymphocyte pct 30.4 % [facility] ([place]) Comment: Interpretive Data Percent cell count reference ranges are not reported, since discordance with absolute values may lead to misinterpretation of CBC data. Current Interpretive Data was last revised on 2018. Testing performed by: [address] [address] Monocyte pct 8.9 % [facility] ([place]) Comment: Interpretive Data Percent cell count reference ranges are not reported, since discordance with absolute values may lead to misinterpretation of CBC data. Current Interpretive Data was last revised on 2018. Testing performed by: [facility], [address] [place] [address]., [address] Eosinophil pct 2.7 % [facility] ([place]) Comment: Interpretive Data Percent cell count reference ranges are not reported, since discordance with absolute values may lead to misinterpretation of CBC data. Current Interpretive Data was last revised on 2018. Testing performed by: [address] [address] Basophil pct 1.2 % [facility] ([place]) Comment: Interpretive Data Percent cell count reference ranges are not reported, since discordance with absolute values may lead to misinterpretation of CBC data. Current Interpretive Data was last revised on 2018. Testing performed by: [address], [address] Blood 03/08/2025 3:08 PM CDT 03/08/2025 7:13 PM CDT Chago Faust MD LAB BLOOD ORDERABLES Mora kingsley Result [facility] ([place]) 1 [facility] Department [place] [address] * CBC with auto differential (03/08/2025 3:08 PM CDT) WBC 7.73 3.80 - 9.90 K/cumm Comment:Testing performed by : [address], [address] Hgb 13.6 13.0 - 17.5 g/dL [facility] ([place]) Comment:Testing performed by : [address], [address] Hct 41.7 38.9 - 50.3 % [facility] ([place]) Comment:Testing performed by : [address] [address] Plt 292 150 - 400 K/cumm [facility] ([place]) Comment:Testing performed by : [address], [address] MPV 10.5 9.1 - 12.3 fL [facility] ([place]) Comment:Testing performed by : [address], [address] RBC 4.75 4.30 - 5.80 M/cumm [facility] ([place]) Comment:Testing performed by : [facility], [address] [place] [address]., [address] MCV 87.8 81.3 - 96.4 fL [facility] ([place]) Comment:Testing performed by : [facility], [address] [place] [address]., [address] MCH 28.6 27.1 - 33.3 pg [facility] ([place]) Comment:Testing performed by : [facility], [address] [place] [address], [address] MCHC 32.6 32.3 - 35.7 g/dL [facility] ([place]) Comment:Testing performed by : [facility], [address] [place] [address], [address] RDW CV 12.6 11.1 - 14.9 % [facility] ([place]) Comment:Testing performed by : [facility], [address] [place] [address], [address] RDW SD 40.2 35.7 - 48.1 fL [facility] ([place]) Comment:Testing performed by : [facility], [address] [place] [address], [address] NRBC abs 0.00 0.00 - 0.01 K/cumm [facility] ([place]) Comment:Testing performed by : [address], [address] Blood 03/08/2025 3:08 PM CDT 03/08/2025 7:13 PM CDT Chago Faust MD LAB BLOOD ORDERABLES Mora kingsley Result [facility] ([place]) 1 [facility] Department [place] [address] * Hepatitis C antibody Blood (03/08/2025 3:08 PM CDT) Pathologist [facility] Hep C Ab Nonreactive Nonreactive [...] on 2019. Testing performed by: [facility], [address] [place] [address]., [address] Blood 03/08/2025 3:08 PM CDT 03/08/2025 7:13 PM CDT Chago Faust MD LAB MICROBIOLOGY - GENERA L ORDERABLES Final Result [facility] ([place]) 1 [facility] [place] [address] * Hepatitis B core antibody, total Blood (03/08/2025 3:08 PM CDT) Hep B core IgG/IgM Nonreactive Nonreactive Comment:Testing performed by : [facility], [address] [place] [address]., [address] Blood 03/08/2025 3:08 PM CDT 03/09/2025 9:43 AM CDT Chago Faust MD LAB MICROBIOLOGY - GENERA L ORDERABLES Final Result [facility] ([place]) 1 [facility] [email or web address] [address] * Hepatitis B surface antibody (immune status) [...] last revised on 19. Testing performed by: [facility], [address] [place] [address]., [address] Blood 03/08/2025 3:08 PM CDT 03/08/2025 7:13 PM CDT Chago Faust MD LAB MICROBIOLOGY - GENERA L ORDERABLES Final Result Performing Organization Address [facility] de Phone Number [facility] ([place]) [address] [place] [address] * Hepatitis B Surface Antigen Blood (03/08/2025 3:08 PM CDT) HepBsAg Nonreactive Nonreactive Comment:Testing performed by : [facility], [address] [place] [address], [address] Blood 03/08/2025 3:08 PM CDT 03/08/2025 7:13 PM CDT Chago Faust MD LAB MICROBIOLOGY - GENERA L ORDERABLES Final Result Performing Organization Address [facility] de Phone Number [facility] ([place]) 1 [facility] [place] [address] * (ABNORMAL) Lipid panel (03/08/2025 3:08 PM [...] last revised on 2018. Testing performed by: [address], [address] Triglycerides 174(H) <=149 mg/dL [facility] ([place] Comment: Interpretive Data Ages < or [...] on 2018. Testing performed by: [facility], [address] [place] [address]., [address] HDL 43 >=40 mg/dL [facility] ([place]) [...] on 2018. Testing performed by: [facility], [address] [place] [address]., [address] LDL, calculated 82 <=129 mg/dL [facility] ([place]) Comment: Interpretive Data Ages < or = [...] Lizama et al. DEA Cardiol. 2020 February 09;5(5):540-549. doi: 10.1001/jamacardio.2020.0013 Current Interpretive Data was last revised on 2024. Testing performed by: [address] [address] Non-HDL Cholesterol 112 mg/dL [facility] ([place]) [...] last revised on 2018. Testing performed by: [address] [address] Chol/HDL ratio 4 [facility] ([place]) Comment:Testing performed by : [address] [address] Blood 03/08/2025 3:08 PM CDT 03/08/2025 7:13 PM CDT us Chago Faust MD LAB BLOOD ORDERABLES Mora kingsley Result [facility] ([place]) 1 [facility] Department [place] [address] * Comprehensive metabolic panel (03/08/2025 3:08 PM CDT) Sodium 141 135 - 145 mmol/L Comment:Testing performed by : [address] [address] Potassium, pl 4.3 3.3 - 4.9 mmol/L [facility] ([place]) Comment:Testing performed by : [address] [address] Chloride 105 97 - 110 mmol/L [facility] ([place]) Comment:Testing performed by : [address], [place]., [address] CO2 28 22 - 32 mmol/L [facility] ([place]) Comment:Testing performed by : [address] [address] Anion gap 8 2 - 15 mmol/L [facility] ([place]) Comment:Testing performed by : [address] [address] BUN 9 6 - 25 mg/dL [facility] ([place]) Comment:Testing performed by : [facility], [address] [place] [address], [address] Creatinine 0.96 0.80 - 1.30 mg/dL [facility] ([place]) Comment:Testing performed by : [address], [address] Glucose 88 70 - 199 mg/dL [facility]ERNER [...] revised 2022. Testing performed by: [facility], [address] [place] [address]., [address] Calcium 9.4 8.5 - 10.3 mg/dL [facility] ([place]) Comment:Testing performed by : [address] [address] Bilirubin, total 0.4 0.1 - 1.2 mg/dL [facility] ([place]) Comment:Testing performed by : [address] [address] Protein, pl 7.2 6.5 - 8.5 g/dL [facility] ([place]) Comment:Testing performed by : [address], [address] Albumin 4.4 3.5 - 5.0 g/dL [facility] ([place]) Comment:Testing performed by : [facility], [address] [place] [address]., [address] Alk phos 83 40 - 130 Units/L [facility] ([place]) Comment:Testing performed by : [facility], [address] [place] [address], [address] ALT 19 7 - 55 Units/L [facility] ([place]) Comment:Testing performed by : [facility], [address] [place] [address], [address] AST 27 10 - 50 Units/L [facility] ([place]) Comment:Testing performed by : [facility], [address] [place] [address], [address] Blood 03/08/2025 3:08 PM CDT 03/08/2025 7:13 PM CDT us Chago Faust MD LAB BLOOD ORDERABLES Mora l Result [facility] ([place]) 1 [facility] Department [place] [address] from Last 3 Months Insurance [facility] Care Teams Machine Setter Relationship Specialty Start Date End Date Chago Faust MD [address] [place] [address] PCP - General Family Medicine 03/08/25
--- OUTSIDE RECORDS SUMMARY | 2025-05-04 17:48 | XMS_ITS | Referral Summary ---
Author Organization [facility] Address [address] [place] [address] Care Team Providers Care Sports Management Intern Name Role Phone Chago Faust MD Primary Care Provider [phone] Encounters Date Type Department Care Team Description 03/27/2025 1:41 PM CDT - 03/27/2025 11:59 PM CDT Hospital Encounter [facility] [address] [place] [address] Lymphadenopathy of head and neck Discharge Disposition: Discharge to home or self care 03/09/2025 Results [facility]Up [facility] [address] [phone] Chago Faust MD CBC with auto differential, Comprehensive metabolic panel, Hepatitis B Surface Antigen Blood, Additional followed-up results: 7 03/08/2025 3:00 PM CDT Lab [facility] [address] [place] [phone] Encounter to establish care with new doctor; Need for hepatitis B screening test; Encounter for hepatitis C screening test for low risk patient 03/08/2025 2:30 PM CDT Office Visit [facility] [address] [phone] Chago Faust MD Lymphadenopathy of head and [...] episode every 4 months; good relief with fkzo-enr-lktlqyv treatments with Tylenol and ibuprofen Continue zogq-crn-rvmofsa treatments p.r.n. for symptoms Varicose veins of [...] on file Legal Sex Male 7:09 AM [employer] Gender Identity Not on file Sexual Orientation [...] the bilateral neck was performed by the splash line operator with selected grayscale and color Doppler images [...] Mariana Wilkinson M.D. SN: SN Report ID: [id number] Reading Location: [id number] Procedure Note Mariana Wilkinson MD - 04/12/2025 EXAM DESCRIPTION: US SOFT TISSUE HEAD NECK REASON FOR STUDY: enlarged lymph nodes; bilaterally Patient complains of swelling to inferior and lateral neck bilaterally for approximately 2 years. TECHNIQUE: A Dynamic assessment of the bilateral neck was performed bythe splash line operator with selected grayscale and color Doppler images [...] Mariana Wilkinson M.D. SN: SN Report ID: [id number] Reading Location: [place] [address] us Chago Faust MD IMG US PROCEDURES [...] was last reviewed 2021. Testing performed by: [facility], [address] [place] [address], [place]., [address] Blood 03/08/2025 3:08 PM CDT 03/08/2025 7:23 PM CDT Chago Faust MD LAB BLOOD ORDERABLES Mora sancho Result [facility] ([place]) 1 [facility] [place] [address] * Differential, auto (03/08/2025 3:08 PM CDT) Neutrophil abs 4.34 1.50 - 6.50 K/cumm Comment:Testing performed by : [facility], [address] [place] [address]., [address] Imm gran abs 0.05 0.00 - 0.10 K/cumm [facility] ([place]) Comment:Testing performed by : [facility], [address] [place] [address], [address] Lymphocyte abs 2.35 0.80 - 3.30 K/cumm [facility] ([place]) Comment:Testing performed by : [facility], [address] [place] [address], [id number] Monocyte abs 0.69 0.20 - 0.80 K/cumm [facility] ([place]) Comment:Testing performed by : [facility], [address] [place] [address]., [address] Eosinophil abs 0.21 0.00 - 0.50 K/cumm [facility] ([place]) Comment:Testing performed by : [address] [address] Basophil abs 0.09 0.00 - 0.10 K/cumm [facility] ([place]) Comment:Testing performed by : [address] [address] Neutrophil pct 56.2 % [facility] ([place]) Comment: Interpretive Data Percent cell count reference ranges are not reported, since discordance with absolute values may lead to misinterpretation of CBC data. Current Interpretive Data was last revised on 2018. Testing performed by: [address], [address] Imm gran pct 0.6 % [facility] ([place]) Comment: Interpretive Data Percent cell count reference ranges are not reported, since discordance with absolute values may lead to misinterpretation of CBC data. Current Interpretive Data was last revised on 2018. Testing performed by: [facility], [address] [place] [address]., [address] Lymphocyte pct 30.4 % [facility] ([place]) Comment: Interpretive Data Percent cell count reference ranges are not reported, since discordance with absolute values may lead to misinterpretation of CBC data. Current Interpretive Data was last revised on 2018. Testing performed by: [facility], [address] [place] [address]., [address] Monocyte pct 8.9 % [facility] ([place]) Comment: Interpretive Data Percent cell count reference ranges are not reported, since discordance with absolute values may lead to misinterpretation of CBC data. Current Interpretive Data was last revised on 2018. Testing performed by: [facility], [address] [place] [address]., [address] Eosinophil pct 2.7 % [facility] ([place]) Comment: Interpretive Data Percent cell count reference ranges are not reported, since discordance with absolute values may lead to misinterpretation of CBC data. Current Interpretive Data was last revised on 2018. Testing performed by: [address] [address] Basophil pct 1.2 % [facility] ([place]) Comment: Interpretive Data Percent cell count reference ranges are not reported, since discordance with absolute values may lead to misinterpretation of CBC data. Current Interpretive Data was last revised on 2018. Testing performed by: [address] [address] Blood 03/08/2025 3:08 PM CDT 03/08/2025 7:13 PM CDT us Chago Faust MD LAB BLOOD ORDERABLES Mora kignsley Result [facility] ([place]EL) 1 [facility] [place] [address] * CBC with auto differential (03/08/2025 3:08 PM CDT) [facility] WBC 7.73 3.80 - 9.90 K/cumm Comment:Testing performed by : [facility], [address] [place] [address], [address] Hgb 13.6 13.0 - 17.5 g/dL [facility] ([place]) Comment:Testing performed by : [address], [address] Hct 41.7 38.9 - 50.3 % [facility] ([place]) Comment:Testing performed by : [facility], [address] [place] [address], [address] Plt 292 150 - 400 K/cumm [facility] ([place]) Comment:Testing performed by : [address], [address] MPV 10.5 9.1 - 12.3 fL [facility] ([place]) Comment:Testing performed by : [address], [address] RBC 4.75 4.30 - 5.80 M/cumm [facility] ([place]) Comment:Testing performed by : [address], [address] MCV 87.8 81.3 - 96.4 fL [facility] ([place]) Comment:Testing performed by : [address], [address] MCH 28.6 27.1 - 33.3 pg [facility] ([place]) Comment:Testing performed by : [address], [address] MCHC 32.6 32.3 - 35.7 g/dL [facility] ([place]) Comment:Testing performed by : [address], [address] RDW CV 12.6 11.1 - 14.9 % [facility] ([place]) Comment:Testing performed by : [address], [address] RDW SD 40.2 35.7 - 48.1 fL [facility] ([place]) Comment:Testing performed by : [address], [address] NRBC abs 0.00 0.00 - 0.01 K/cumm [facility] ([place]EL) Comment:Testing performed by : [facility], [address] [place] [address]., [address] Blood 03/08/2025 3:08 PM CDT 03/08/2025 7:13 PM CDT Chago Faust MD LAB BLOOD ORDERABLES Mora l Result Performing Organization Address [facility] Co de Phone Number [facility] (UNITY) 1 [facility] [place] [address] * Hepatitis C antibody Blood (03/08/2025 3:08 [...] last revised on 2019. Testing performed by: [facility], [address] [place] [address]., [address] Blood 03/08/2025 3:08 PM CDT 03/08/2025 7:13 PM CDT Chago Faust MD LAB MICROBIOLOGY - GENERA L ORDERABLES Final Result Performing Organization Address [facility] Co de Phone Number [facility] ([place]EL) 1 [place] [address] * Hepatitis B core antibody, total Blood (03/08/2025 3:08 PM CDT) Hep B core IgG/IgM Nonreactive Nonreactive Comment:Testing performed by : [facility], [address] [place] [address], [place]., [address] Blood 03/08/2025 3:08 PM CDT 03/09/2025 9:43 AM CDT Chago Faust MD LAB MICROBIOLOGY - GENERA L ORDERABLES Final Result [facility] ([place]) 1 [facility] [place] [address] * Hepatitis B surface antibody (immune status) [...] last revised on 19. Testing performed by: [address] [address] Blood 03/08/2025 3:08 PM CDT 03/08/2025 7:13 PM CDT Chago Faust MD LAB MICROBIOLOGY - GENERA L ORDERABLES Final Result Performing Organization Address [facility] Co de Phone Number [facility] (UNITY) 1 [facility] [place] [address] * Hepatitis B Surface Antigen Blood (03/08/2025 3:08 PM CDT) HepBsAg Nonreactive Nonreactive Comment:Testing performed by : [address] [address] Blood 03/08/2025 3:08 PM CDT 03/08/2025 7:13 PM CDT Chago Faust MD LAB MICROBIOLOGY - GENERA L ORDERABLES Final Result [facility] ([place]EL) 1 [facility] [place] [address] * (ABNORMAL) Lipid panel (03/08/2025 3:08 PM CDT) [facility] Signature Cholesterol 155 30 - 199 [...] last revised on 2018. Testing performed by: [facility], [address] [place] [address]., [address] Triglycerides 174(H) <=149 mg/dL [facility] ([place]IGUEL) [...] last revised on 2018. Testing performed by: [facility], [address] [place] [address]., [address] HDL 43 >=40 mg/dL [facility] (MIGUEL) [...] last revised on 2018. Testing performed by: [facility], [address] [place] [address]., [address] LDL, calculated 82 <=129 mg/dL [facility] [...] last revised on 2024. Testing performed by: [address] [address] Non-HDL Cholesterol 112 mg/dL [facility] (MIGUEL) [...] last revised on 2018. Testing performed by: [address] [address] Chol/HDL ratio 4 [facility] (MIGUEL) Comment:Testing performed by : [address] [address] Blood 03/08/2025 3:08 PM CDT 03/08/2025 7:13 PM CDT us Chago Faust MD LAB BLOOD ORDERABLES Mora kingsley Result [facility] (UNITY) 1 [facility] Department [place] [address] * Comprehensive metabolic panel (03/08/2025 3:08 PM CDT) Sodium 141 135 - 145 mmol/L Comment:Testing performed by : [facility], [address] [place] [address]., [address] Potassium, pl 4.3 3.3 - 4.9 mmol/L [facility] Comment:Testing performed by : [facility], [address] [place] [address], [address] Chloride 105 97 - 110 mmol/L [facility] ([place]) Comment:Testing performed by : [facility], [address] [place] [address], [address] CO2 28 22 - 32 mmol/L [facility] ([place]) Comment:Testing performed by : [address] [address] Anion gap 8 2 - 15 mmol/L [facility] Comment:Testing performed by : [address] [address] BUN 9 6 - 25 mg/dL [facility] ([place]) Comment:Testing performed by : [address], [address] Creatinine 0.96 0.80 - 1.30 mg/dL [facility] ([place]) Comment:Testing performed by : [address], [address] Glucose 88 70 - 199 mg/dL CERNER [...] was last revised 2022. Testing performed by: [facility], [address] [place] [address]., [address] Calcium 9.4 8.5 - 10.3 mg/dL [facility] ([place]) Comment:Testing performed by : [address] [address] Bilirubin, total 0.4 0.1 - 1.2 mg/dL [facility] ([place]) Comment:Testing performed by : [address], [address] Protein, pl 7.2 6.5 - 8.5 g/dL [facility] ([place]) Comment:Testing performed by : [address], [address] Albumin 4.4 3.5 - 5.0 g/dL [facility] ([place]) Comment:Testing performed by : [address], [address] Alk phos 83 40 - 130 Units/L [facility] ([place]) Comment:Testing performed by : [address], [address] ALT 19 7 - 55 Units/L [facility] ([place]) Comment:Testing performed by : [address], [address] AST 27 10 - 50 Units/L [facility] ([place]) Comment:Testing performed by : [address], [address] Blood 03/08/2025 3:08 PM CDT 03/08/2025 7:13 PM CDT us Chago Faust MD LAB BLOOD ORDERABLES Mora kingsley Result [facility] 1 [facility] [place] [address] from Last 3 Months Insurance [facility] HMO/PPO Address: [address] [address] Care Teams Sports Management Intern Relationship Specialty Start Date End Date Chago Faust MD [address] [place] [address] PCP - General Family Medicine 03/08/25
[2025-05-04 17:55] VITALS: BP 117/80; PULSE 60; RESP 18; TEMP 36.6; O2SAT 99
--- NOTE | 2025-05-04 18:07 | ED.SKABFB ---
HPI - Skin/Abscess/Foreign Bdy General Chief complaint: Skin/Abscess/Foreign Body Stated complaint: infection in leg Time Seen by Provider: 05/04/25 18:00 Source: patient Mode of arrival: ambulatory Limitations: no limitations History of Present Illness HPI narrative: Jeanine is a 29-year-old male patient presenting to the clinic today with complaints of a wound check for an infection to the left lateral lower leg. He reports that the swelling, redness, and pain has improved to the left lateral lower leg. His mother is concerned that the area is turning slightly purple. Denies any fevers, chills, body aches. Was prescribed Bactrim 2 days ago has been taking in as directed. Related Data Allergies Allergy/AdvReac Type Severity Reaction Status Date / Time No Known Allergies Allergy Verified 05/04/25 18:04 Review of Systems Review of Systems: Pertinent positives per HPI. Patient denies any fever, chills, rash, headache, visual changes, dizziness, cough, runny nose, sore throat, shortness of breath, chest pain, palpitations, nausea, vomiting, diarrhea, constipation, abdominal pain, or any urinary issues. PMFSH Comments At the time of my signature, I reviewed and agree with the nursing past medical, surgical, social, and family history. There is no relevant family history pertinent to the patient complaint. Exam Narrative: General: Well-developed, well nourished, in no apparent distress Head: Normocephalic, atraumatic. Cardio: Regular rate and rhythm, s1 and s2 normal, no murmur appreciated. Resp: Clear to auscultation bilaterally, no rhonchi, rales, wheezing or rubs. Integumentary: [place], warm, and dry, wound to the left lateral lower leg, dark red healing wound infection-induration area measures 1 cm x 1 cm with mild induration, very mild tenderness to palpation, no drainage Course Course Emergency Course: Portions of this record may have been created with voice recognition software. Level of Care: Express Care Visit Vital Signs Vital signs: Vital Signs Temperature 36.6 C 05/04/25 17:55 Pulse Rate 60 05/04/25 17:55 Respiratory Rate 18 05/04/25 17:55 Blood Pressure 117/80 05/04/25 17:55 Pulse Oximetry 99 05/04/25 17:55 Oxygen Delivery Room Air 05/04/25 17:55 Temperature 36.6 C 05/04/25 17:55 Pulse Rate 60 05/04/25 17:55 Respiratory Rate 18 05/04/25 17:55 Blood Pressure 117/80 05/04/25 17:55 Pulse Oximetry 99 05/04/25 17:55 Oxygen Delivery Room Air 05/04/25 17:55 Vital signs reviewed MDM - Skin/Abscess/Foreign Bdy MDM Narrative Medical decision making narrative: At the time of visit patient is resting comfortably on the exam table. Patient appears to be nontoxic. Complaints of wound check for an infection to the left lateral lower leg. He reports that the swelling, redness, and pain has improved to the left lateral lower leg. His mother is concerned that the area is turning slightly purple. Overall he says his symptoms have improved. Continues to take Bactrim as prescribed 2 days ago. Supportive measures were discussed with the patient and they voiced understanding discharge instructions and agrees to treatment plan. Return precautions reviewed Differential Diagnosis Differential diagnosis: Likely abscess of skin or subcutaneous tissue, viral exanthem, dermatophytosis, urticaria, herpes zoster, allergic reaction to drug, cellulitis, insect bites and impetigo Discharge Plan Discharge Clinical Impression: Encounter for wound re-check, Bacterial infection of skin Patient Disposition: Home Condition: Stable Instructions: Antibiotic Form, Cellulitis (ED) Additional Instructions: Wound/skin infection appears to be improving Continue taking Bactrim as prescribed May take Tylenol/Motrin as needed for pain Follow-up with your primary care doctor for recheck in 2-3 days Patient Language: Greenlandic Prescriptions: No Action sulfamethoxazole-trimethoprim [Bactrim DS] 800-160 mg tablet 1 tablet PO Q12H 7 Days Qty: 14 0RF Follow-up/Referrals: UNKNOWN,DOCTOR [Primary Care Provider] - Time of Disposition: 18:08 Quality NIHSS Nursing Documentation ED NIHSS nursing documentation: reviewed/agree
== END 2025-05-04 18:14 | disposition home or self-care (01) ==
PROVIDERS: Emergency Provider Nurse Practitioner Family
DX: L08.9 Local infection of the skin and subcutaneous tissue, unspecified (principal); B96.89 Other specified bacterial agents as the cause of diseases classified elsewhere
CPT/HCPCS: 99212; G0463